=== PATIENT | male | born 1975 | race Caucasian/White ===

== ENCOUNTER 2022-02-22 10:23 | Outpatient (CLI) | payer OTHER ==
[2022-02-22 11:42] LABS: Mean Corpuscular HGB CONC 33.5 g/dL (32.0-36.0); Mean Corpuscular Hemoglobin 30.4 pg (27.0-33.0); Mean Corpuscular Volume 90.9 fl (81.2-95.1); Mean Platelet Volume 8.7 fl (7.4-10.4); Platelet Count 383 10x3/uL (150-450); RBC Distribution Width 13.2 % (11.5-14.5); Red Blood Cell (RBC) Count 4.27 10x6/uL (4.32-5.72); White Blood Cell (WBC) Count 10.8 10x3/uL (3.5-10.5)
[2022-02-22 12:17] LABS: Anion Gap 15 mmol/L (10-20); BUN (Urea Nitrogen) 16 mg/dL (8.9-20.6); Calc. Creatinine Clearance 0 mL/min (70-130); Calcium 9.8 mg/dL (7.8-10.44); Carbon Dioxide 26 mmol/L (22-29); Chloride 104 mmol/L (98-107); Glucose 90 mg/dL (70-105); Potassium 4.4 mmol/L (3.5-5.1); Sodium 141 mmol/L (136-145)
== END 2022-02-22 10:24 | disposition home or self-care (01) ==
LOC: CSHLAB 10:23
PROVIDERS: ATTEND Podiatrist Foot & Ankle Surgery
DX: Z01.812 Encounter for preprocedural laboratory examination (principal); Z20.822 Contact with and (suspected) exposure to COVID-19; S92.321A Displaced fracture of second metatarsal bone, right foot, initial encounter for closed fracture; S92.331A Displaced fracture of third metatarsal bone, right foot, initial encounter for closed fracture; S92.341A Displaced fracture of fourth metatarsal bone, right foot, initial encounter for closed fracture
CPT/HCPCS: 80048; 85027; U0003; U0005

== ENCOUNTER 2022-02-23 11:34 | Day surgery (SDC) | payer OTHER ==
[2022-02-22 11:33] VITALS: BMI 23.0
[2022-02-23] MEDS ORDERED: Lidocaine 1% MPF 2 ML VIAL ONE (12:12)
[2022-02-23] MEDS ORDERED: Neomycin-Polymyxin 1 ML AMP ONE (13:02)
[2022-02-23] MEDS ORDERED: Bupivacaine PF 0.5% 30 ML VIAL ONE (13:02)
[2022-02-23] MEDS ORDERED: Ondansetron PF 4 MG/2 ML Vial ONE (13:06)
[2022-02-23] MEDS ORDERED: Lidocaine 1% PF 5 ML VIAL ONE (13:06)
[2022-02-23] MEDS ORDERED: Fentanyl 100 MCG/2 ML VIAL ONE (13:06)
[2022-02-23] MEDS ORDERED: Midazolam HCl 2 mg/2 ml Vial ONE (13:06)
[2022-02-23] MEDS ORDERED: PROPOFOL 40 ML ONE (13:06)
[2022-02-23] MEDS ORDERED: Clindamycin/D5W 600 MG in Premix Bag 1 BAG IVPB SCH (13:30)
[2022-02-23] MEDS ORDERED: Dexamethasone 4 mg/ml Vial ONE (13:31)
[2022-02-23] MEDS ORDERED: Ketorolac Tromethamine 30 MG/ML VIAL ONE (13:31)
[2022-02-23] MEDS ORDERED: PHENYLEPHRINE-NS 100 MCG/ML 10 ML SYRINGE ONE (14:21)
== END 2022-02-23 15:38 | disposition home or self-care (01) ==
LOC: CSHSDC 11:34
PROVIDERS: ATTEND Podiatrist Foot & Ankle Surgery
PROC: 0QBN0ZZ Excision of Right Metatarsal, Open Approach (ICD-10-PCS; principal; 2022-02-23)
DX: S92.321A Displaced fracture of second metatarsal bone, right foot, initial encounter for closed fracture (principal); S92.331A Displaced fracture of third metatarsal bone, right foot, initial encounter for closed fracture; S92.341A Displaced fracture of fourth metatarsal bone, right foot, initial encounter for closed fracture; S90.31XA Contusion of right foot, initial encounter; Z87.891 Personal history of nicotine dependence; Z79.1 Long term (current) use of non-steroidal anti-inflammatories (NSAID); Z88.0 Allergy status to penicillin; V89.2XXA Person injured in unspecified motor-vehicle accident, traffic, initial encounter
CPT/HCPCS: J1100; J1885; J2250; J2405; J2704; J3010; J3490; S0020